=== PATIENT | male | born 1950 | race Caucasian/White ===

== ENCOUNTER → 2020-07-05 15:48 | Outpatient (BNVA) | payer MEDICARE, SELFPAY | PROVIDERS: Family Provider Nurse Practitioner; PCP Nurse Practitioner Family; Visit Provider Family Medicine | DX: R41.3 Other amnesia (principal); R73.9 Hyperglycemia, unspecified | CPT/HCPCS: 36415; 80053; 80061; 82306; 83036; 84443; 85025 ==

== ENCOUNTER 2020-07-18 06:00 | Outpatient (CLI) | payer MEDICARE, SELFPAY | END 2020-07-18 06:01 | disposition home or self-care (01) | LOC: LAB 06-22 14:23 | PROVIDERS: PCP Nurse Practitioner Family; Visit Provider Family Medicine | DX: G31.84 Mild cognitive impairment of uncertain or unknown etiology (principal); R41.3 Other amnesia | CPT/HCPCS: 82607; 82746; 86592 ==

== ENCOUNTER 2020-08-09 12:50 | Outpatient (CLI) | payer MEDICARE, SELFPAY ==
--- NOTE | 2020-08-09 13:45 | MR_ITS ---
WS: [id number] MRI HEAD WITHOUT CONTRAST TECHNIQUE: Sagittal T1, T2 axial, T2 axial FLAIR, axial and coronal T1 images, axial susceptibility w eighted imaging, axial diffusion weighted images, and coronal T2 images were obtained. CLINICAL INFORMATION: R41.3 - Other amnesia COMPARISON: None. FINDINGS: No evidence of restricted diffusion to suggest acute ischemia. Ventricular system and basal cisterns are patent. Mild small vessel changes. Moderate parenchymal volume loss. Advanced symmetric atrophy i nvolving the temporal lobes and hippocampal formations bilaterally. No underlying temporal lobe signa l abnormalities. Normal posterior fossa. Normal vascular flow voids at the skull base. No extra-axial fluid collections. No evidence of mass or mass effect. Mild mucosal thickening in the paranasal sinu ses. Mastoid air cells well aerated. No hemosiderin on the susceptibly weighted images. Normal optic chiasm and pituitary infundibulum. No rmal cavernous sinuses and Meckel's cave. Well-circumscribed T2 hyperintense lesion in the pricing specialist space partially visualized measuring 2.2 x 1.2 x 3.4 cm. This is incompletely evaluated and may represent nerve sheath tumor such as schwannom a or odontogenic lesion such as odontogenic keratocyst. This appears to involve the left mandibular r amus. Additional smaller satellite component extending inferiorly through the mandibular foramen. MR/MR head wo con* [id number] IMPRESSION: 1. No evidence of restricted diffusion to suggest acute ischemia. 2. Mild small vessel changes with moderate parenchymal volume loss. 3. Advanced symmetric atrophy involving the temporal lobes and hippocampal for mations bilaterally. 4. No hemosiderin on susceptibly weighted images. 5. Well-circumscribed T2 hyperintense lesion in the pricing specialist space partially visualized described above. This can be further evaluated with contrast-enhanc ed neck CT.
== END 2020-08-09 12:51 | disposition home or self-care (01) ==
LOC: RADSHAW 12:56
PROVIDERS: Family Provider Nurse Practitioner; PCP Nurse Practitioner Family; Visit Provider Family Medicine
DX: R41.3 Other amnesia (principal); G31.9 Degenerative disease of nervous system, unspecified
CPT/HCPCS: 70551

== ENCOUNTER 2020-08-29 13:40 | Outpatient (CLI) | payer MEDICARE, SELFPAY ==
--- NOTE | 2020-08-29 14:10 | CT_ITS ---
WS: [id number] CT NECK TECHNIQUE: Contrast-enhanced CT of the neck with coronal and sagittal reformatted images. CLINICAL INFORMATION: R93.0 - Abnormal findings on diagnostic imaging of skull ... COMPARISON: MRI August 09, 2020 DLP: 1117.[address] scans at [facility] use at least one of these dose optimization techniques: automat ed exposure control; mA and/or kV adjustment per patient size (includes targeted exams where dose is matched to clinical indication); or iterative reconstruction. FINDINGS: Previously described T2 hyperintense lesion involving the left tack coverer space corresponds to a expa nsile left mandibular bony lesion on today's CT. This measures approximately 1.9 x 1.3 x 3.3 cm. Desha ncy about the crown measuring 10.1 x 8.8 mm. This arises from the remaining posterior unerupted mola r. This involves the left mandibular ramus with bony expansion and cortical thinning. No significant bony destruction. 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 No eviden ce of drainable abscess or fluid collection. Mastoid air cells are well aerated. Mild mucosal thickening in the ethmoid air cells. Mild polypoid m ucosal thickening in the left frontal sinus. Opacification left frontal ethmoidal recess. A few small polypoid lesions in the left maxillary sinus. Sphenoid sinuses are well aerated. Parotid glands are normal. Normal submandibular glands. No evidence of supraglottic or glottic mass. Emphysematous renodn e is the lung apices. Mild spondylitic changes cervical spine. CT/CT neck w con* [id number] IMPRESSION: 1. Expansile left intraosseous mandibular lesion involving a left posterior un erupted molar. This corresponds to the lesion seen on the MRI and measures appr oximately 1.9 x 1.3 x 3.3 cm. Lucency about the crown of the molar measures 10 x 8 mm. No significant bony destruction. Findings compatible with odontogenic l esion likely dentigerous cyst. Consider dental/oral surgery consultation. 2. No evidence of drainable abscess or fluid collection. 3. Normal salivary glands. 4. Mild polypoid mucosal thickening in the paranasal sinuses described above. 5. Mastoid air cells are well aerated.
[2020-08-29 14:35] LABS: Blood Urea Nitrogen 11 mg/dL (8-23)
[2020-08-29] MEDS: iohexol 300 mg/mL 100 mL Btl IV (14:49)
== END 2020-08-29 13:41 | disposition home or self-care (01) ==
LOC: RADWPI 13:48
PROVIDERS: PCP Nurse Practitioner Family; Visit Provider Nurse Practitioner Family
DX: R93.0 Abnormal findings on diagnostic imaging of skull and head, not elsewhere classified (principal); R41.3 Other amnesia
CPT/HCPCS: 70491; 82565; 84520; Q9967

== ENCOUNTER → 2020-11-11 10:11 | Outpatient (BNVA) | payer MEDICARE, SELFPAY | PROVIDERS: PCP Nurse Practitioner Family; Visit Provider Family Medicine | DX: K09.0 Developmental odontogenic cysts (principal); R93.0 Abnormal findings on diagnostic imaging of skull and head, not elsewhere classified | CPT/HCPCS: 80048; 85025 ==

== ENCOUNTER → 2021-09-20 08:07 | Outpatient (BNVA) | payer MEDICARE, SELFPAY | PROVIDERS: PCP Nurse Practitioner Family; Visit Provider Nurse Practitioner Family | DX: G25.71 Drug induced akathisia (principal); G31.84 Mild cognitive impairment of uncertain or unknown etiology; N40.0 Benign prostatic hyperplasia without lower urinary tract symptoms; R53.83 Other fatigue; E53.8 Deficiency of other specified B group vitamins | CPT/HCPCS: 80053; 82607; 82746; 84153; 84443; 85025; 85651; 86141; 86618; 86666; 86757 ==

== ENCOUNTER → 2021-12-15 08:02 | Outpatient (BNVA) | payer MEDICARE, SELFPAY | PROVIDERS: PCP Nurse Practitioner; Visit Provider Nurse Practitioner | DX: R53.83 Other fatigue (principal) | CPT/HCPCS: 80053; 84443; 85025; 85651 ==

== ENCOUNTER → 2021-12-28 10:08 | Outpatient (BNVA) | payer MEDICARE, SELFPAY | PROVIDERS: PCP Nurse Practitioner; Visit Provider Nurse Practitioner | DX: R41.3 Other amnesia (principal); R68.83 Chills (without fever) | CPT/HCPCS: 82175; 83655; 83825 ==

== ENCOUNTER → 2022-04-02 11:27 | Outpatient (BNVA) | payer MEDICARE, SELFPAY | PROVIDERS: PCP Nurse Practitioner; Visit Provider Nurse Practitioner | DX: R41.3 Other amnesia (principal); Z79.899 Other long term (current) drug therapy | CPT/HCPCS: 80053; 85025 ==

== ENCOUNTER → 2022-05-25 09:33 | Outpatient (BNVA) | payer MEDICARE, SELFPAY | PROVIDERS: PCP Nurse Practitioner; Visit Provider Nurse Practitioner | DX: R68.83 Chills (without fever) (principal); A77.0 Spotted fever due to Rickettsia rickettsii; R53.83 Other fatigue | CPT/HCPCS: 86160; 86618; 86666; 86668; 86757 ==

== ENCOUNTER 2022-07-11 11:34 | Outpatient (CLI) | payer MEDICARE, SELFPAY ==
--- NOTE | 2022-07-11 11:00 | CT_ITS ---
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 Bone and soft tiss ue windows. Sagittal and coronal reformats reviewed. All CT scans at [facility] use at least one of these dose optimization techniques: automated exposure control; mA and/or kV adjustment per pa tient size (includes targeted exams where dose is matched to clinical indication); or iterative recon struction. DLP: 1039.64 mGy.cm COMPARISON: Prior MRI 08/09/2020 No acute intracranial hemorrhage, midline shift or mass effect. Severe bilateral symmetric atrophy. Mild small vessel ischemic disease. Remote lacunar infarct RIGHT caudate. Advanced bilateral cerebellar atrophy. Ventricles: Normal size with no hydrocephalus. No inferior displacement of cerebellar tonsils. Paranasal sinuses: As visualized are clear. Mastoid air cells: Well pneumatized. Calvarium and scalp: Skull is intact with no soft tissue edema or swelling. CT/CT head wo con* [id number] IMPRESSION: 1. No acute intracranial hemorrhage or edema. 2. Advanced cerebral and cerebellar atrophy. 3. Remote lacunar infarct RIGHT caudate.
--- NOTE | 2022-07-11 14:45 | CTR_ITS ---
PROCEDURE INFORMATION: Exam: CT Chest Without Contrast; Diagnostic Exam date and time: 07/11/2022 2:44 PM Age: 71 years old Clinical indication: Other: Abnormal weight loss; Patient HX: 11 pound wt loss in 2 weeks; Additional info: R63.4 - abnormal weight loss TECHNIQUE: Imaging protocol: Diagnostic computed tomography of the chest without contrast. Radiation optimization: All CT scans at this facility use at least one of these dose optimization techniques: automated exposure control; mA and/or kV adjustment per patient size (includes targeted exams where dose is matched to clinical indication); or iterative reconstruction. REPORTING DATA: Count of CT and Cardiac NM exams in prior 12 months: This patient has received 0 known CTs and 0 known cardiac nuclear medicine studies in the 12 months prior to the current study. COMPARISON: CT neck w con* [id number] 08/29/2020 2:40 PM RADIATION DOSE METRICS: Total DLP (mGy-cm): 226.18 FINDINGS: Lungs: Small region of tree-in-bud opacities in the peripheral left upper lobe. Minimal atelectasis in the posterior right lower lobe. Pleural spaces: Unremarkable. No pneumothorax. No pleural effusion. Heart: The heart size is normal. Coronary arteries: Coronary artery calcifications. Lymph nodes: Unremarkable. No enlarged lymph nodes. Vasculature: Unremarkable. No aortic aneurysm. Bones/joints: Mild thoracic curvature. Stable mild depression of the superior endplate T2. No acute fracture. Soft tissues: Unremarkable. PROCEDURE INFORMATION: Exam: CT Abdomen Without Contrast Exam date and time: 07/11/2022 2:44 PM Age: 71 years old Clinical indication: Other: Abnormal weight loss; Patient HX: 11 pound wt loss in 2 weeks; Additional info: R63.4 - abnormal weight loss TECHNIQUE: Imaging protocol: Computed tomography of the abdomen without contrast. Radiation optimization: All CT scans at this facility use at least one of these dose optimization techniques: automated exposure control; mA and/or kV adjustment per patient size (includes targeted exams where dose is matched to clinical indication); or iterative reconstruction. REPORTING DATA: Count of CT and Cardiac NM exams in prior 12 months: This patient has received 0 known CTs and 0 known cardiac nuclear medicine studies in the 12 months prior to the current study. COMPARISON: No relevant prior studies available. RADIATION DOSE METRICS: Total DLP (mGy-cm): 226.18 FINDINGS: Liver: Normal. No mass. Gallbladder and bile ducts: Normal. No calcified stones. No ductal dilation. Pancreas: There are a few small benign calcifications in the pancreas. The pancreas is otherwise unremarkable. Spleen: Normal. No splenomegaly. Adrenal glands: Normal. No mass. Kidneys and ureters: Round hypodense lesion in the right kidney is too small to characterize but is most likely a cyst. No follow-up imaging is recommended. The kidneys are otherwise unremarkable. No calculus or hydronephrosis. Stomach and bowel: Visualized stomach and bowel are unremarkable. No obstruction. No mucosal thickening. Intraperitoneal space: Unremarkable. No free air. No significant fluid collection. Vasculature: Mild arterial calcifications. No aneurysm. Lymph nodes: Unremarkable. No enlarged lymph nodes. Bones/joints: Degenerative changes of the lumbar spine. No acute fracture. Soft tissues: Unremarkable. CT/CT chest abdomen wo con IMPRESSION: 1. Small region of tree-in-bud opacities in the left upper lobe could represent infectious bronchiolitis. No consolidation. IMPRESSION: 1. No acute findings in the abdomen. COMMENTS: Consistent with the [employer]'s Incidental Findings Committee white paper (J Am Preet Radiol 2018): Any incidental renal lesion less than 1 cm or classified as too small to characterize, or any incidental cystic renal lesion characterized as simple-appearing, is likely benign. No follow-up imaging is recommended for these lesions per consensus recommendations based on imaging criteria.
== END 2022-07-11 11:35 | disposition home or self-care (01) ==
PROVIDERS: PCP Nurse Practitioner; Visit Provider Family Medicine
DX: A77.0 Spotted fever due to Rickettsia rickettsii (principal); G31.9 Degenerative disease of nervous system, unspecified; R41.3 Other amnesia; R63.4 Abnormal weight loss; R63.0 Anorexia
CPT/HCPCS: 70450; 71250; 74150; 82607; 82746; 84443

== ENCOUNTER → 2022-07-12 16:34 | Outpatient (BNVA) | payer MEDICARE, SELFPAY | PROVIDERS: PCP Nurse Practitioner; Visit Provider Family Medicine | DX: R62.7 Adult failure to thrive (principal); R63.0 Anorexia; R63.4 Abnormal weight loss; G25.71 Drug induced akathisia; E53.8 Deficiency of other specified B group vitamins; Z79.899 Other long term (current) drug therapy | CPT/HCPCS: 80053; 80061; 83036; 84443; 85025; 86592 ==